=== PATIENT | female | born 1930 ===

== ENCOUNTER → 2016-11-30 | Outpatient (REF) | LOC: ZLAB.WCH 11:12 | DX: Z01.89 Encounter for other specified special examinations (principal) ==

== ENCOUNTER → 2017-03-08 | Outpatient (REF) | LOC: ZLAB.WCH 18:03 | DX: Z01.89 Encounter for other specified special examinations (principal) ==

== ENCOUNTER → 2017-05-30 | Outpatient (REF) | LOC: ZLAB.WCH 18:04 | DX: Z01.89 Encounter for other specified special examinations (principal) ==

== ENCOUNTER → 2017-11-15 | Outpatient (REF) | LOC: ZLAB.WCH 15:38 | DX: Z01.89 Encounter for other specified special examinations (principal) ==

== ENCOUNTER → 2018-02-24 | Outpatient (REF) | LOC: ZLAB.WCH 16:02 | DX: Z01.89 Encounter for other specified special examinations (principal) ==

== ENCOUNTER → 2018-08-16 | Outpatient (REF) | LOC: ZLAB.WCH 11:33 | DX: Z01.89 Encounter for other specified special examinations (principal) ==